=== PATIENT | male | born 1970 | race Caucasian/White ===

== ENCOUNTER 2017-09-04 16:20 | Emergency (ER) | payer OTHER | END 2017-09-04 21:24 | disposition left against medical advice (07) | LOC: E/R 16:20 | DX: M26.623 Arthralgia of bilateral temporomandibular joint (principal) | CPT/HCPCS: 99283 ==

== ENCOUNTER 2018-01-11 18:37 | Emergency (ER) | payer OTHER ==
[2018-01-11] MEDS: ACETAMINOPHEN 325 MG TAB PO (19:31)
== END 2018-01-11 19:45 | disposition home or self-care (01) ==
LOC: FTE 18:37
DX: S51.831A Puncture wound without foreign body of right forearm, initial encounter (principal); S50.811A Abrasion of right forearm, initial encounter; W54.0XXA Bitten by dog, initial encounter; Y92.9 Unspecified place or not applicable
CPT/HCPCS: 99283